=== PATIENT | male | born 1975 | race Hispanic/Latino ===

== ENCOUNTER 2017-05-07 10:16 | Emergency (ER) | payer SELFPAY ==
[2017-05-07] MEDS ORDERED: KETOROLAC TROMETHAMINE 30MG/ML ONE (10:31)
[2017-05-07] MEDS ORDERED: DEXAMETHASONE SOD PHOSPHATE 10MG/ML 1ML VIAL ONE (10:31)
== END 2017-05-07 11:27 | disposition home or self-care (01) ==
LOC: EDH 10:16
DX: M10.061 Idiopathic gout, right knee (principal)
CPT/HCPCS: 96361; 96374; 96375; 99285; J1100; J1885

== ENCOUNTER 2017-08-05 14:10 | Emergency (ER) | payer SELFPAY ==
[2017-08-05] MEDS ORDERED: TETANUS/DIPHTHERIA TOXOID [ADULT] 0.5 ML VIAL IM ONE (14:43)
[2017-08-05] MEDS ORDERED: IBUPROFEN 600 MG TABLET ONE (14:54)
== END 2017-08-05 15:23 | disposition home or self-care (01) ==
LOC: EDH 14:10
DX: S01.511A Laceration without foreign body of lip, initial encounter (principal); M10.9 Gout, unspecified; Y04.0XXA Assault by unarmed brawl or fight, initial encounter; Y93.89 Activity, other specified; Y92.89 Other specified places as the place of occurrence of the external cause; Y99.8 Other external cause status
CPT/HCPCS: 90471; 90714

== ENCOUNTER 2022-12-07 11:46 | Emergency (ER) | payer OTHER ==
[~2022-12-07] VITALS: Ht 172.7 cm; Wt 89.8 kg
[2022-12-07] MEDS ORDERED: SOLU-MEDROL 125MG VIAL IM ONE (13:30)
[2022-12-07] MEDS ORDERED: FAMOTIDINE 20MG TAB PO ONE (13:30)
[2022-12-07] MEDS ORDERED: DiphenhydrAMINE HCL 50 MG/ML VIAL IM ONE (13:30)
[2022-12-07] MEDS ORDERED: PRED20TA3 PO (13:32)
[2022-12-07] MEDS ORDERED: DIPH-1242 PO (13:32)
[2022-12-07 15:20] VITALS: BP 132/74; PULSE 70; RESP 16; O2SAT 100
== END 2022-12-07 15:23 | disposition home or self-care (01) ==
LOC: EDH 11:46
DX: T78.49XA Other allergy, initial encounter (principal); L50.0 Allergic urticaria; Z79.899 Other long term (current) drug therapy; Z98.890 Other specified postprocedural states; X58.XXXA Exposure to other specified factors, initial encounter
CPT/HCPCS: 99284; 96372 ×2; J1200; J2930

== ENCOUNTER 2024-06-03 09:18 | Emergency (ER) | payer SELFPAY ==
[~2024-06-03] VITALS: Ht 175.3 cm; Wt 95.3 kg
[~2024-06-03 09:18] MED LIST: DIPH-1242 PO; PRED20TA3 PO
[2024-06-03] MEDS: TRIAMCINOLONE ACETONIDE 40 MG/ML 1ML VIAL IM ONE (09:29)
[2024-06-03] MEDS: ORPHENADRINE 60MG/2ML IM ONE (09:29)
--- NOTE | 2024-06-03 09:30 | ERN ---
General Chief Complaint: Low Back Pain/Injury Stated Complaint: LOW BACK PAIN Time Seen by MD: 09:21 Source: patient History of Present Illness Initial Comments Patient was he was is a 48-year-old male coming in with right posterior lower extremity pain. Patient states that he has a history of chronic back pain in his last night started having pain in his gluteal region radiating down the right leg. Patient states that the pain is exacerbated with movement quantified at 8/10 sharp. Allergies: Coded Allergies: No Known Allergies (Unverified Allergy, Unknown, 12/07/22) Home Meds Active Scripts Prednisone (Prednisone) 20 Mg Tablet, 20 MG PO DAILY, #5 TAB Prov:JUVENCIO AWAN V SENIOR ESTIMATOR 12/07/22 Diphenhydramine HCl (Benadryl) 25 Mg Cap, 25 MG PO Q4HPRN PRN for ITCHING, #30 CAP Prov:JUVENCIO AWAN V SENIOR ESTIMATOR 12/07/22 Past Medical History Past Medical History: No Pertinent History Past Surgical History: Other Surgical History Other: BILATERAL HIPS ROS Dictation CONSTITUTIONAL: No chills, no fever, no weakness, no diaphoresis, no malaise. HEAD/FACE: No signs of trauma. EENT: No eye pain, no blurred vision, no tearing, no double vision, no ear pain, no ear discharge, no nose pain, no nasal congestion, no throat pain, no throat swelling, no mouth pain. RESPIRATORY: No cough, no orthopnea, no SOB, no stridor, no wheezing. CARDIOVASCULAR: No chest pain, no edema, no palpitations, no syncope. GASTROINTESTINAL/ABDOMINAL: No abdominal pain, no constipation, no diarrhea, no nausea, no vomiting. GENITOURINARY: No abnormal discharge, no dysuria, no frequent urination, no hematuria. No complaints of pain in the genitals. MUSCULOSKELETAL: No back pain, no gout, no joint pain, no joint swelling, muscle pain, no muscle stiffness, no neck pain. INTEGUMENTARY: No change in color, no change in hair/nails, no dryness, no lesion, no lumps, no rash. NEUROLOGICAL/PSYCH: No anxiety, not depressed, no emotional problem, no headache, no numbness, no pre-existing deficit, no history of seizures, no tremors, no weakness. HEMATOLOGIC/LYMPHATIC: Not anemic, no history of blood clots, no apparent bleeding, no bruising, glands not swollen. All Systems Negative, Except as Noted. Physical Exam Physical Exam Dictation VITAL SIGNS: Reviewed. GENERAL APPEARANCE: Alert, oriented x3, no acute distress, obese. HEAD AND FACE: Non-traumatic. EYES: PERRL, pink conjunctivas, eyelid no trauma, anterior chamber clear. EARS: Pinnas intact and no signs of trauma or erythema. Ear canals clear and no discharge. TMs no erythema. NOSE: No discharge, no bleeding. OROPHARYNX: Mouth normal, teeth no caries, tongue pink. Pharynx clear, no erythema. Tonsils no exudates, no abscesses noted. Mucous membrane moist. NECK: Supple, non-tender, no thyromegaly, no masses, no JVD, no bruits. BREAST: Deferred. CHEST: No tenderness, no crepitus, no paradoxical movement, no retractions. LUNGS: Clear, well-ventilated, symmetric, no rales, no wheezing, no rhonchi, no stridor, good breath sounds bilaterally. HEART: Regular rate, regular rhythm, no murmur, no gallops. VASCULAR: No peripheral edema. ABDOMEN: Soft, positive bowel sounds, nondistended, no guarding, nontender, no rebound, no masses no hepatomegaly, no splenomegaly, no Mercado's sign, no hernias. RECTAL: Deferred. GENITAL: Deferred. NEUROLOGICAL: Normal speech, gross motor function intact, gross sensory function intact. MUSCULOSKELETAL: Neck nontender, full range of motion, back nontender, full range of motion. EXTREMITIES: Nontender, full range of motion. SKIN: Color pink, dry, no turgor, no rash, no lacerations, no abrasions, no contusions. LYMPHATICS: Deferred. Results Laboratory and Microbiology Labs Reviewed?: Yes EKG/XRAY/US/CT/MRI X-RAY Comment IMAGING REPORT Signed PATIENT: LEO ARMIJO JR MR#: [id number] : 1975 SEX: M AGE: 48 LOCATION: [facility] ORDER 3 STATUS: REG REPORT#: [id number] SERVICE [id number] REASON: lower back pain ORDERING PHYSICIAN: CHARLES QUINTERO MD PROCEDURE: LUMB 2 3VW - LUMBAR SPINE 2-3VWS LUMBAR SPINE 2-3VWS HISTORY: Back pain COMPARISON: None FINDINGS: 3 images of lumbar spine were obtained. Bilateral hip prosthesis are seen. There is mild dextroscoliosis. Degenerative changes are seen in the lumbar spine spondylosis. There is straightening of normal lordotic curvature which may be related to muscle spasm or positioning. No loss of vertebral height is seen. No fracture or dislocation is seen. Degenerative changes are seen. IMPRESSION: 1. No fracture is seen. DJD. DICTATED BY: REINALDO MOREL MD DATE: 06/03/24 1028 ELECTRONICALLY SIGNED BY: REINALDO MOREL MD DATE: 06/03/24 1032 [facility] MDM: Differential diagnosis: Rationale: Tests considered and ordered secondary to shared decision making include: Previous outside records reviewed: Old ER visits. Risk of complication and/or morbidity or mortality of patient management: None Medications-Per medication reconciliation Need for hospitalization: Patient does not meet criteria for hospitalization. Need for emergency major/minor surgery: No There are no social concerns with this patient. Prescription drug management Prescriptions will include symptomatic care Patient's prior external medical records from other ER visits were reviewed by me as indicated. Prior testing and results from previous visits were reviewed. Prior tests were taken into account with medical decision making and resource utilization, independent historian/historians were used to obtain complete medical history. I independently interpreted the test that were performed, results were reviewed by me and considered findings on radiology if ordered. Medical management and examination interpretation discussions were had by me with other qualified healthcare professionals as indicated for the patient's care. ED Course Orders Procedure Category Date Status Time Lumbar Spine 2-3vws RAD 06/03/24 Resulted 09:23 Orphenadrine Citrate PHA 06/03/24 Complete (Norflex) 09:30 Triamcinolone Acet PHA 06/03/24 Complete 40mg/Ml 1ml (Kenalog 09:30 Current Medications Medications (Trade) Dose Ordered Sig/Olivier Route PRN Reason Start Time Stop Time Status Last Admin Dose Admin Orphenadrine Citrate (Norflex) 60 mg ONCE ONCE IM 06/03/24 09:30 06/03/24 09:31 DC 06/03/24 09:29 Triamcinolone Acetonide (Kenalog 40) 40 mg ONCE ONCE IM 06/03/24 09:30 06/03/24 09:31 DC 06/03/24 09:29 Vital Signs Date Time Temp Pulse Resp B/P (MAP) Pulse Ox O2 Delivery O2 Flow Rate FiO2 06/03/24 09:21 98.6 80 16 169/108 98 Room Air 0 06/03/24 09:20 98.6 80 16 169/108 98 Room Air* 0 21 DX & DISP Disposition: Discharge Departure Impression: Primary Impression: Sciatica Condition: Stable Scripts Naproxen (Naproxen) 500 Mg Tablet 1 TAB PO BID for pain for 7 Days, #14 TAB 0 Refills Prov: CHARLES QUINTERO MD 06/03/24 Methocarbamol (Robaxin) 750 Mg Tab 1 TAB PO BID for 7 Days, #14 TAB 0 Refills Prov: CHARLES QUINTERO MD 06/03/24 Additional Instructions: FOLLOW-UP WITH PRIMARY CARE PROVIDER IN 1 TO 2 DAYS. TAKE MEDICATIONS DIRECTED HERE IN THE EMERGENCY ROOM. OKAY TO CONTINUE HOME MEDICATIONS UNLESS OTHERWISE DISCUSSED DURING YOUR VISIT IN THE EMERGENCY ROOM TODAY. RETURN TO YOUR NEAREST EMERGENCY ROOM IF SYMPTOMS WORSEN OR IF THERE IS NO IMPROVEMENT. CALL 911 IF YOU NEED IMMEDIATE ASSISTANCE. TAKE TYLENOL [id number] NEEDED AND IF NO CONTRAINDICATIONS ARE PRESENT. INCREASE ORAL HYDRATION. A WOUND CULTURE OR URINE CULTURE WAS ORDERED HERE IN THE EMERGENCY ROOM DEPARTMENT PLEASE FOLLOW-UP WITH PRIMARY CARE PROVIDER AND ADVISE THEM TO GET REPEAT PORTS FROM OUR FACILITY. IF YOU HAD ANY LITO WRAP/SPLINTS THAT WERE APPLIED HERE, PLEASE DO NOT REMOVE THEM UNTIL YOU SEE YOUR PRIMARY CARE OR SPECIALTY. Referrals: Referrals: GUILLERMINA HAQ MD (PCP) Time of Disposition: 10:46 CHARLES QUINTERO MD Jun 03, 2024 09:30
--- NOTE | 2024-06-03 10:32 | HMCIMG ---
LUMBAR SPINE 2-3VWS HISTORY: Back pain COMPARISON: None FINDINGS: 3 images of lumbar spine were obtained. Bilateral hip prosthesis are seen. There is mild dextroscoliosis. Degenerative changes are seen in the lumbar spine spondylosis. There is straightening of normal lordotic curvature which may be related to muscle spasm or positioning. No loss of vertebral height is seen. No fracture or dislocation is seen. Degenerative changes are seen. IMPRESSION: 1. No fracture is seen. DJD.
[2024-06-03] MEDS ORDERED: METH-662 PO (10:47)
[2024-06-03] MEDS ORDERED: NAPR-1194 PO (10:47)
[2024-06-03 10:52] VITALS: BP 157/95; PULSE 78; RESP 16; TEMP 98.6; O2SAT 98
== END 2024-06-03 10:56 | disposition home or self-care (01) ==
LOC: EDH 09:18
DX: M54.40 Lumbago with sciatica, unspecified side (principal); Z79.52 Long term (current) use of systemic steroids; Z98.890 Other specified postprocedural states
CPT/HCPCS: 99284; 72100; 96372 ×2; J3301; J2360

== ENCOUNTER 2025-04-07 14:48 | Emergency (ER) | payer SELFPAY ==
[~2025-04-07] VITALS: Ht 177.8 cm; Wt 88.5 kg
[~2025-04-07 14:48] MED LIST changes: +METH-662 PO; +NAPR-1194 PO
--- NOTE | 2025-04-07 15:07 | ERN ---
ED Note History of Present Illness Stated Complaint: HEADACHE Chief Complaint: Flu Symptoms Time Seen by MD: 14:55 Dictation: IS A 49-YEAR-OLD MALE HERE WITH FLU-LIKE SYMPTOMS TO INCLUDE FRONTAL HEADACHE, MILD SORE THROAT WITH PAINFUL SWALLOWING, CLEAR RHINITIS, GENERALIZED BODY ACHES FOR THE LAST TWO DAYS. HE DENIES NAUSEA VOMITING NO LOSS OF TASTE OR SMELL. STATES HE HAD HIS DAUGHTER WITH THE HIM DURING THE WEEKEND AND SHE WAS SICK WITH THE SAME COMPLAINTS. HE DID NOT GO SEE HIS PRIMARY CARE DOCTOR. HE HAS NOT TAKEN ANYTHING TODAY PRIOR TO ARRIVAL FOR PAIN. Allergies: Coded Allergies: No Known Allergies (Unverified Allergy, Unknown, 12/07/22) Home Meds Active Scripts Naproxen (Naproxen) 500 Mg Tablet, 1 TAB PO BID for pain for 7 Days, #14 TAB 0 Refills Prov:CHARLES QUINTERO MD 06/03/24 Methocarbamol (Robaxin) 750 Mg Tab, 1 TAB PO BID for 7 Days, #14 TAB 0 Refills Prov:CHARLES QUINTERO MD 06/03/24 Prednisone (Prednisone) 20 Mg Tablet, 20 MG PO DAILY, #5 TAB Prov:JUVENCIO AWANP 12/07/22 Diphenhydramine HCl (Benadryl) 25 Mg Cap, 25 MG PO Q4HPRN PRN for ITCHING, #30 CAP Prov:JUVENCIO AWAN V SATELLITE TV TECHNICIAN INSTALLER 12/07/22 Past Medical History Past Medical History: Other Additional Past Medical Hx: GOUT Surgical History: Other Surgical History Other: BILATERAL HIPS RN Note Reviewed/Agreed w/PFSH: Yes Review of System Dictation CONSTITUTIONAL: NEGATIVE EXCEPT FOR HPI FEVER CHILLS HEAD/FACE: NEGATIVE EXCEPT FOR HPI EENT: NEGATIVE EXCEPT FOR HPI CLEAR RHINITIS WITH SORE THROAT RESPIRATORY: NEGATIVE EXCEPT FOR HPI GASTROINTESTINAL/ABDOMINAL: NEGATIVE EXCEPT FOR HPI GENITOURINARY: NEGATIVE EXCEPT FOR HPI MUSCULOSKELETAL: NEGATIVE EXCEPT FOR HPI INTEGUMENTARY: NEGATIVE EXCEPT FOR HPI NEUROLOGICAL/PSYCH: NEGATIVE EXCEPT FOR HPI HEMATOLOGIC/LYMPHATIC: NEGATIVE EXCEPT FOR HPI ALL SYSTEMS NEGATIVE, EXCEPT NOTED ABOVE. 13 POINT REVIEW OF SYSTEMS ASSESSED AND ALL NEGATIVE EXCEPT FOR ABOVE. Initial Vital Sign VS Vital Signs Date Time Temp Pulse Resp B/P (MAP) Pulse Ox O2 Delivery O2 Flow Rate FiO2 04/07/25 14:49 99.1 89 18 143/92 99 Physical Exam Dictation VITAL SIGNS REVIEWED GENERAL APPEARANCE: ALERT, ORIENTED X 3, MILD ACUTE DISTRESS, WELL DEVELOPED, NOURISHED. HEAD AND FACE: NON-TRAUMATIC. EYES: PERRL, PINK CONJUNCTIVAS, EYELID NO TRAUMA, ANTERIOR CHAMBER WITH ARCUS SENILIS. EARS: PINNAS INTACT AND NO SIGNS OF TRAUMA OR ERYTHEMA EAR CANALS CLEAR AND NO DISCHARGE TM NO ERYTHEMA NOSE: CLEAR DISCHARGE, NO BLEEDING. OROPHARYNX: MOUTH NORMAL, TONGUE PINK, PHARYNX CLEAR,N MILD PHARYNGEAL ERYTHEMA, TONSILS NO EXUDATES, NO ABSCESSES NOTED, MUCOUS MEMBRANE MOIST UVULA MIDLINE, VOICE IS CLEAR NECK: SUPPLE, NON-TENDER, NO THYROMEGALY, NO MASSES, NO JVD, NO BRUITS BREAST:DEFERRED CHEST:NO TENDERNESS, NO CREPITUS, NO PARADOXICAL MOVEMENT, NO RETRACTIONS LUNGS:CLEAR, WELL-VENTILATED, SYMMETRIC, NO RALES, NO WHEEZING, NO RHONCHI, NO STRIDOR, GOOD BREATH SOUNDS BILATERALLY HEART: REGULAR RATE, REGULAR RHYTHM, NO MURMUR, NO GALLOPS VASCULAR: NO PERIPHERAL EDEMA, ABDOMEN: SOFT, POSITIVE BOWEL SOUNDS, NONDISTENDED, NO GUARDING, NONTENDER, NO REBOUND, NO MASSES NO HEPATOMEGALY, NO SPLENOMEGALY, NO BARRERA'S SIGN, NO HERNIAS. RECTAL: DEFERRED GENITAL: DEFERRED NEUROLOGICAL: NORMAL SPEECH, MOTOR FUNCTION INTACT, SENSORY FUNCTION INTACT MUSCULOSKELETAL: NECK NONTENDER, FULL RANGE OF MOTION, BACK NONTENDER, FULL RANGE OF MOTION, EXTREMITIES: NONTENDER, FULL RANGE OF MOTION SKIN: COLOR PINK, DRY, NO TURGOR, NO RASH, NO LACERATIONS, NO ABRASIONS, NO CONTUSIONS. LYMPHATIC: DEFERRED Results (Laboratory/Radiology) Laboratory/Radiology Laboratory Tests Test 04/07/25 15:17 Influenza Type A Antigen Positive For Type A Influenza Type B Antigen Negative For Type B Group A Streptococcus Rapid negative (NEGATIVE) Labs Reviewed?: Yes ED Course ED Course Orders Procedure Category Date Status Time Covid19 (Sars Antigen LAB 04/07/25 In Process Rapid) 15:04 Influenza Type A & B, LAB 04/07/25 In Process Rapid 15:04 Rapid (Group A Strep) LAB 04/07/25 In Process 15:04 Ibuprofen 800 Mg Tab PHA 04/07/25 Complete (Motrin) 15:30 Current Medications Medications (Trade) Dose Ordered Sig/Olivier Route PRN Reason Start Time Stop Time Status Last Admin Dose Admin Ibuprofen (moTRIN) 800 mg ONCE ONCE PO 04/07/25 15:30 04/07/25 15:31 DC Vital Signs Date Time Temp Pulse Resp B/P (MAP) Pulse Ox O2 Delivery O2 Flow Rate FiO2 04/07/25 14:49 99.1 89 18 143/92 99 1600/PATIENT PHARMACY FOR INFLUENZA A WE WILL BE DISCHARGED HOME WITH TAMIFLU AND FEVER MANAGEMENT INSTRUCTIONS AND REHYDRATION Medical Decision Making MDM MEDICAL DECISION-MAKING BASED ON SWABS FOR FLU COVID AND STREP. PATIENT INFLUENZA A POSITIVE DISCHARGED HOME WITH TAMIFLU FOR FIVE DAYS B.I.D. FEVER CONTROL AND REHYDRATION INSTRUCTIONS SEE HIS PRIMARY CARE DOCTOR NEEDED DX & DISP Disposition: Discharge Departure Condition: Stable Scripts Ibuprofen (Ibuprofen 800 mg Tab) 800 Mg Tab 800 MG PO Q8H PRN for fever or pain, #30 TAB 0 Refills Prov: TAMIKA NAVARRO 04/07/25 Oseltamivir Phosphate (Tamiflu) 75 Mg Cap 75 MG PO BID for 5 Days, #10 CAP Prov: TAMIKA NAVARRO 04/07/25 Additional Instructions: FOLLOW-UP WITH PRIMARY CARE PROVIDER IN 1 TO 2 DAYS. TAKE MEDICATIONS DIRECTED HERE IN THE EMERGENCY ROOM. OKAY TO CONTINUE HOME MEDICATIONS UNLESS OTHERWISE DISCUSSED DURING YOUR VISIT IN THE EMERGENCY ROOM TODAY. RETURN TO YOUR NEAREST EMERGENCY ROOM IF SYMPTOMS WORSEN OR IF THERE IS NO IMPROVEMENT. CALL 911 IF YOU NEED IMMEDIATE ASSISTANCE. TAKE TYLENOL OR MOTRIN [id number] NEEDED AND IF NO CONTRAINDICATIONS ARE PRESENT. INCREASE ORAL HYDRATION. A WOUND CULTURE OR URINE CULTURE WAS ORDERED HERE IN THE EMERGENCY ROOM DEPARTMENT PLEASE FOLLOW-UP WITH PRIMARY CARE PROVIDER AND ADVISE THEM TO GET REPEAT PORTS FROM OUR FACILITY. IF YOU HAD ANY LITO WRAP/SPLINTS THAT WERE APPLIED HERE, PLEASE DO NOT REMOVE THEM UNTIL YOU SEE YOUR PRIMARY CARE OR SPECIALTY. TAKE TAMIFLU DIRECTED UNTIL GONE. TAKE IBUPROFEN WITH FOOD EVERY 6-8 HOURS NEEDED FOR FEVER PAIN. INCREASE YOUR WATER INTAKE. NO WORK UNTIL CLEARED BACK BY YOUR PRIMARY CARE DOCTOR NEXT WEEK. Referrals: SELF,REFERRAL (PCP) Time of Disposition: 15:58 I have reviewed the case, and I agree with, Diagnosis and Plan TAMIKA NAVARRO Apr 07, 2025 15:07
[2025-04-07 15:44] LABS: INFLUENZA TYPE B Negative For Type B (NEGATIVE); RAPID GROUP A STREP negative (NEGATIVE)
[2025-04-07 15:55] LABS: INFLUENZA TYPE A Positive For Type A (NEGATIVE)
[2025-04-07 15:56] LABS: COVID19 (SARS ANTIGEN RAPID) PRESUMPTIVE NEGATIVE (NEGATIVE)
[2025-04-07] MEDS ORDERED: OSEL75 PO (15:58)
[2025-04-07] MEDS ORDERED: IBUP-2077 PO (15:58)
[2025-04-07 16:51] VITALS: BP 139/92; PULSE 97; RESP 20; TEMP 99.2; O2SAT 98
== END 2025-04-07 16:52 | disposition home or self-care (01) ==
LOC: EDH 14:48
DX: J10.1 Influenza due to other identified influenza virus with other respiratory manifestations (principal); M10.9 Gout, unspecified; Z79.52 Long term (current) use of systemic steroids; Z20.822 Contact with and (suspected) exposure to COVID-19
CPT/HCPCS: 87426; 87804; 87880; 99283